=== PATIENT | male | born 1955 | race African-American/Black ===

== ENCOUNTER → 2018-07-14 | Outpatient (CLI) | payer OTHER ==
[~2018-07-14] MED LIST: 0.9 % SODIUM CHLORIDE 10 ML VIAL ONE; DEXAMETHASONE SOD PHOS 4 MG/ML VIAL ONE; IOHEXOL 300 MG/ML 50 ML VIAL. ONE; LIDOCAINE 1% PF 30 ML VIAL. ONE; methylPREDNISolone ACETATE 80 MG/ML VIAL. ONE
== END | disposition home or self-care (01) ==
LOC: SURG 13:35
PROVIDERS: ATTEND Anesthesiology
DX: M54.5 Low back pain (principal); Z79.899 Other long term (current) drug therapy
CPT/HCPCS: 62323; 82947; J1040; J1100; J2001; Q9967

== ENCOUNTER → 2018-08-04 | Outpatient (CLI) | payer OTHER ==
[~2018-08-04] MED LIST changes: +LIDOCAINE 1% PF 2 ML VIAL. ONE; -LIDOCAINE 1% PF 30 ML VIAL. ONE; -methylPREDNISolone ACETATE 80 MG/ML VIAL. ONE
== END | disposition home or self-care (01) ==
LOC: SURG 14:29
PROVIDERS: ATTEND Anesthesiology
DX: M54.16 Radiculopathy, lumbar region (principal); K21.9 Gastro-esophageal reflux disease without esophagitis; F17.210 Nicotine dependence, cigarettes, uncomplicated; G47.30 Sleep apnea, unspecified; M19.90 Unspecified osteoarthritis, unspecified site; Z79.899 Other long term (current) drug therapy; Z72.89 Other problems related to lifestyle; F12.90 Cannabis use, unspecified, uncomplicated; Z98.890 Other specified postprocedural states
CPT/HCPCS: 64483; 64484; 82947; J1100; Q9967

== ENCOUNTER → 2018-08-25 | Outpatient (CLI) | payer OTHER ==
[~2018-08-25] MED LIST changes: -0.9 % SODIUM CHLORIDE 10 ML VIAL ONE; +BUPIVACAINE MPF 0.5% 30 ML VIAL. ONE; -DEXAMETHASONE SOD PHOS 4 MG/ML VIAL ONE; -IOHEXOL 300 MG/ML 50 ML VIAL. ONE; -LIDOCAINE 1% PF 2 ML VIAL. ONE; +LIDOCAINE 1% PF 30 ML VIAL. ONE
== END | disposition home or self-care (01) ==
LOC: SURG 13:49
PROVIDERS: ATTEND Anesthesiology
DX: M47.816 Spondylosis without myelopathy or radiculopathy, lumbar region (principal); Z79.899 Other long term (current) drug therapy; Z98.890 Other specified postprocedural states; G89.29 Other chronic pain
CPT/HCPCS: 64493; 64494; J2001; J3490

== ENCOUNTER 2021-10-02 22:23 | Emergency (ER) | payer MEDICARE, OTHER ==
[~2021-10-02] VITALS: Ht 167.6 cm; Wt 86.0 kg
--- NOTE | 2021-10-02 23:15 | RAD ---
EXAMINATION: XR CHEST 2V CLINICAL HISTORY: For body sensation after eating "beef neck bone" EXAM DATE/TIME: 10/02/2021 10:35 PM COMPARISON: 09/10/2016 FINDINGS: Lines, Tubes, and Devices: None. Cardiomediastinal Silhouette: Heart size at upper limits of normal. Lungs and Pleura: No evidence of focal airspace consolidation or pleural effusion. Pulmonary vasculat ure unremarkable. Bones and Soft Tissues: No acute osseous abnormality. No evidence of retained radiopaque foreign body . IMPRESSION: No evidence of acute cardiopulmonary abnormality or retained radiopaque foreign body. Electronically signed by: Matt Khan DO (10/02/2021 11:13 PM) [facility]
--- NOTE | 2021-10-02 23:33 | RAD ---
CT NECK SOFT TISSUE WITHOUT CONTRAST History:Reason: foreign body sensation after eating "beef neck bone" Technique: CT imaging was performed of the neck soft tissues with intravenous contrast. Coronal and s agittal reconstructions were performed. Comparison: None Findings: There is a osseous foreign body measuring 1.9 cm transverse by 0.4 cm AP by 2.1 cm cranioca udal in the proximal cervical esophagus. No esophageal perforation is identified. Normal appearance of the bilateral submandibular and parotid glands. Unremarkable thyroid gland. No pathologic lymphadenopathy. Imaged lung apices are unremarkable. Imaged paranasal sinuses and mastoid air cells are clear. Imaged orbits and intracranial contents are unremarkable. Mild multilevel degenerative changes in the cervical spine greatest at C3-C4 and C5-C6 with disc height loss and endplate osteophytes. Impression: 1. Osseous foreign body measuring 1.9 x 0.4 x 2.1 cm in the proximal esophagus. No evidence of esoph ageal perforation. Exposure: One or more of the following individualized dose reduction techniques were utilized for thi s examination: 1. Automated exposure control 2. Adjustment of the mA and/or kV according to patient size 3. Use of iterative reconstruction technique. Electronically signed by: Derek Holden MD (10/02/2021 11:30 PM) [facility]
--- NOTE | 2021-10-02 23:59 | PHYS DOC ---
Past History Past Medical History: Diverticulitis, Hypertension Past Surgical History: No Surgical History Smoking: Cigarettes Alcohol Use: Heavy Drug Use: None General Adult EDM: Chief Complaint: FOREIGN BODY HPI: HPI: 66-year-old male presents with report of esophageal foreign body sensation after eating "beef neck soup" approximately 1 hour prior to arrival. Patient reports he tried to give himself the "Heimlich "without improvement. Patient denies difficulty breathing. Patient reports he tried drinking some water but still has sensation that a piece of bone is stuck in his throat. Patient reports he is able to swallow but does have some pain and difficulty. Patient denies hist ory of esophageal issues. Patient denies known exposure to COVID-19. Patient reports he has received Moderna vaccinations x2. Review of Systems: Review of Systems: Constitutional: Denies fever or chills Eyes: Denies redness or eye pain HENT: Denies nasal congestion; reports esophageal foreign body sensation Respiratory: Denies cough or shortness of breath Cardiovascular: Denies chest pain or palpitations GI: Denies abdominal pain, nausea, or vomiting : Denies dysuria or hematuria Musculoskeletal: Denies back pain or joint pain Integument: Denies rash or skin lesions Neurologic: Denies headache, focal weakness or sensory changes Complete systems were reviewed and found to be within normal limits, except as documented in this note. Allergies: Allergies: Allergies Coded Allergies Type Severity Reaction Last Updated Verified No Known Drug Allergies 10/02/21 No Physical Exam: PE: Constitutional: Well developed, well nourished, anxious, non-toxic appearance HENT: Normocephalic, atraumatic, patient handling his own secretions however constantly is trying to clear his throat Eyes: Conjunctiva normal, no discharge Neck: Normal range of motion, supple Lungs & Thorax: No respiratory distress, equal chest rise and fall, no stridor Abdomen: Soft, no tenderness, no guarding/rebound tenderness/distention Skin: Warm, dry, no erythema, no rash Extremities: No tenderness, ROM intact, no edema Neurologic: Alert and oriented X 3, no focal deficits noted Psychologic: Affect normal, judgment normal Current Patient Data: Vital Signs: Vital Signs Date Time Temp Pulse Resp B/P (MAP) Pulse Ox O2 Delivery O2 Flow Rate FiO2 10/02/21 22:25 98.1 70 18 128/89 (102) 98 Room Air EKG: EKG: [] Radiology/Procedures: Radiology/Procedures: PROCEDURE: CT SOFT TISSUE NECK WO CONTRST CT NECK SOFT TISSUE WITHOUT CONTRAST History:Reason: foreign body sensation after eating "beef neck bone" Technique: CT imaging was performed of the neck soft tissues with intravenous contrast. Coronal and sagittal reconstructions were performed. Comparison: None Findings: There is a osseous foreign body measuring 1.9 cm transverse by 0.4 cm AP by 2.1 cm craniocaudal in the proximal cervical esophagus. No esophageal perforation is identified. Normal appearance of the bilateral submandibular and parotid glands. Unremarkable thyroid gland. No pathologic lymphadenopathy. Imaged lung apices are unremarkable. Imaged paranasal sinuses and mastoid air cells are clear. Imaged orbits and intracranial contents are unremarkable. Mild multilevel degenerative changes in the cervical spine greatest at C3-C4 and C5-C6 with disc height loss and endplate osteophytes. Impression: 1. Osseous foreign body measuring 1.9 x 0.4 x 2.1 cm in the proximal esophagus. No evidence of esophageal perforation. Exposure: One or more of the following individualized dose reduction techniques were utilized for this examination: 1. Automated exposure control 2. Adjustment of the mA and/or kV according to patient size 3. Use of iterative reconstruction technique. Electronically signed by: Derek Holden MD (10/02/2021 11:30 PM) [facility] PROCEDURE: CHEST PA & LATERAL EXAMINATION: XR CHEST 2V CLINICAL HISTORY: For body sensation after eating "beef neck bone" EXAM DATE/TIME: 10/02/2021 10:35 PM COMPARISON: 09/10/2016 FINDINGS: Lines, Tubes, and Devices: None. Cardiomediastinal Silhouette: Heart size at upper limits of normal. Lungs and Pleura: No evidence of focal airspace consolidation or pleural effusion. Pulmonary vasculature unremarkable. Bones and Soft Tissues: No acute osseous abnormality. No evidence of retained radiopaque foreign body. IMPRESSION: No evidence of acute cardiopulmonary abnormality or retained radiopaque foreign body. Electronically signed by: Matt Khan DO (10/02/2021 11:13 PM) [facility] Heart Score: C/O Chest Pain: N/A Course & Med Decision Making: Course & Med Decision Making Pertinent Labs and Imaging studies reviewed. (See chart for details) Patient presents with concern for swallowing a piece of bone in "beef neck soup "which occurred approximately 1 hour prior to arrival. Patient has sensation of esophageal foreign body. Patient is handling his own secretions. No stridor on physical exam. Sats stable. Chest x-ray without acute finding. CT soft tissue neck therefore obtained with findings consistent for approximately obstructing esophageal osseous foreign body measuring approximately 2 cm x 2 cm x 0.5 cm. Given likelihood for patient to be able to pass osseous foreign body being low, decision that patient should be transferred for further evaluation and treatment with a GI specialist. Discussed case with Dr. Rothman (GI) at [facility] who is in agreement with consultation and requests ad mission through hospitalist with plan for GI lab in the a.m. Patient initially advised of recommendation/plan and adamantly refused. Patient reports he does not want to be admitted to the hospital and would rather elect to go home AGAINST MEDICAL ADVICE and will present to ER if symptoms continued. Discussed risks and benefits of leaving AGAINST MEDICAL ADVICE including worsening of symptoms, possible need for surgical intervention, permanent disability, and/or . After discussion with patient's daughter he elects to agree to transfer but request to go by private vehicle. Labs obtained and posted to chart. Patient kept n.p.o. Discussed with Dr. Rivers (hospitalist) who is in agreement with transfer for admission to [facility]. Patient advised to present directly to [facility] for admission and not to stop or eat/drink anything. Patient signed transfer paperwork. Discussed findings and plan with patient and family, who acknowledges understanding and agreement. Arcadio Disclaimer: Arcadio Disclaimer: This electronic medical record was generated, in whole or in part, using a voice recognition dictation system. Departure Departure: Impression: Primary Impression: Esophageal foreign body Qualified Codes: T18.108A - Unspecified foreign body in esophagus causing other injury, initial encounter Disposition: [facility] ([facility]- Dr. Rivers accepting) Admitting Physician: Ap Rivers Condition: STABLE Referrals: ALEXANDREA SHAH (PCP) DAMARI ROTHMAN MD Additional Instructions: Present directly to [facility] for admission and plan for GI consultation and treatment. MARGARET PAZ DO Oct 02, 2021 23:59
[2021-10-03 00:45] LABS: BASO # 0.1 x10^3/uL (0.0-0.2); BASO % 1 % (0-3); EOS # 0.1 x10^3/uL (0.0-0.7); EOS % 2 % (0-3); HEMATOCRIT 42.8 % (39.0-53.0); HEMOGLOBIN 14.2 g/dL (13.0-17.5); LYMPH # 2.5 x10^3/uL (1.0-4.8); LYMPH % 37 % (24-48); MEAN CORPUSCULAR HEMOGLOBIN 30 pg (25-35); MEAN CORPUSCULAR HGB CONC 33 g/dL (31-37); MEAN CORPUSCULAR VOLUME 90 fL (79-100); MONO # 0.4 x10^3/uL (0.0-1.1); MONO % 6 % (0-9); NEUT # 3.7 x10^3uL (1.8-7.7); NEUT % 55 % (31-73); PLATELET COUNT 167 x10^3/uL (140-400); RED BLOOD COUNT 4.76 x10^6/uL (4.30-5.70); RED CELL DISTRIBUTION WIDTH 14.7 % (11.5-14.5); WHITE BLOOD COUNT 6.8 x10^3/uL (4.0-11.0)
[2021-10-03 00:57] LABS: CALCIUM 8.5 mg/dL (8.5-10.1); GFR 90.2; POTASSIUM 3.3 mmol/L (3.5-5.1)
[2021-10-03 01:03] LABS: ALBUMIN 3.7 g/dL (3.4-5.0); ALBUMIN/GLOBULIN RATIO 0.9 (1.0-1.7); MAGNESIUM 2.2 mg/dL (1.8-2.4); TOTAL BILIRUBIN 0.2 mg/dL (0.2-1.0); TOTAL PROTEIN 7.7 g/dL (6.4-8.2)
[2021-10-03 01:20] VITALS: BP 126/91
== END 2021-10-03 01:30 | disposition short-term general hospital (02) ==
LOC: ER 22:23
DX: T18.128A Food in esophagus causing other injury, initial encounter (principal); I10 Essential (primary) hypertension; F17.210 Nicotine dependence, cigarettes, uncomplicated; F10.20 Alcohol dependence, uncomplicated; Z20.822 Contact with and (suspected) exposure to COVID-19; Y90.9 Presence of alcohol in blood, level not specified; X58.XXXA Exposure to other specified factors, initial encounter; Y93.89 Activity, other specified; Y92.89 Other specified places as the place of occurrence of the external cause; Y99.8 Other external cause status
CPT/HCPCS: 36415; 70490; 71046; 80053; 83735; 85025; 87426; 99285; C9803; U0003